=== PATIENT | female | born 1935 | race Caucasian/White ===

== ENCOUNTER 2019-06-07 22:26 | Inpatient (IN) | payer MEDICARE, OTHER ==
[~2019-06-07] VITALS: Ht 157.5 cm; Wt 59.4 kg
--- NOTE | 2019-06-07 22:37 | NUR ---
Dr. Mallory at bedside for MSE.
[2019-06-07] MEDS ORDERED: ROSU10TA2 PO (22:41)
[2019-06-07] MEDS ORDERED: EZET10TA15 PO (22:41)
[2019-06-07] MEDS ORDERED: ASPI-605 PO (22:41)
[2019-06-07] MEDS ORDERED: LEVO100T10 PO (22:41)
[2019-06-07 22:48] LABS: BASOPHILS % (AUTO) 0.6 % (0.0-2.0); EOSINOPHILS # (AUTO) 0.1 K/uL (0.0-0.7); EOSINOPHILS % (AUTO) 1.1 % (0.0-7.0); HEMATOCRIT 41.1 % (31.2-41.9); HEMOGLOBIN 14.2 g/dL (10.9-14.3); LYMPHOCYTES # (AUTO) 2.5 K/uL (20.0-40.0); LYMPHOCYTES % (AUTO) 32.6 % (20.5-51.5); MEAN CORPUSCULAR HEMOGLOBIN 30.2 uug (24.7-32.8); MEAN CORPUSCULAR HGB CONC 35 g/dL (32.3-35.6); MEAN CORPUSCULAR VOLUME 87.5 fL (75.5-95.3); MONOCYTES # (AUTO) 0.5 K/uL (2.0-10.0); MONOCYTES % (AUTO) 6.6 % (0.0-11.0); NEUTROPHILS # (AUTO) 4.5 K/uL (1.8-8.9); NEUTROPHILS % (AUTO) 59.1 % (38.5-71.5); PLATELET COUNT (AUTO) 347 K/uL (179-408); WHITE BLOOD COUNT (AUTO) 7.5 K/uL (3.8-11.8)
[2019-06-07 22:56] LABS: CREATININE 0.7 mg/dL (0.6-1.3); POTASSIUM 4.2 mmol/L (3.5-5.1)
--- NOTE | 2019-06-07 23:00 | NUR ---
Xray at bedside.
--- NOTE | 2019-06-07 23:11 | NUR ---
Called [facility] to page Dr. Bruce Queen.
[2019-06-07] MEDS ORDERED: ASPIRIN 81 MG TAB.CHEW ONE (23:28)
[2019-06-07] MEDS ORDERED: METOPROLOL SUCCINATE XL 25 MG TAB.SR.24H PO ONE ×2 (23:29→23:30)
[2019-06-07] MEDS ORDERED: NITROGLYCERIN OINT 1 GM PACKET TP ONE ×2 (23:29→23:30)
[2019-06-07] MEDS ORDERED: ASPIRIN 81 MG TAB.CHEW PO ONE (23:30)
--- NOTE | 2019-06-08 00:02 | NUR ---
Called [facility] to page Dr. Vázquez.
--- NOTE | 2019-06-08 00:16 | NUR ---
Dr. Mallory on panel call with Dr. Vázquez. Patient accepted for admission to [facility], diagnosis: chestpain.
--- NOTE | 2019-06-08 00:19 | NUR ---
Report given to Davian HAN Tele.
[2019-06-08] MEDS ORDERED: ASPIRIN 81 MG TAB.CHEW PO ONE (00:30)
[2019-06-08] MEDS ORDERED: HYDROCODONE/APAP 5-325MG TABLET PO PRN (00:30)
[2019-06-08] MEDS ORDERED: Z GUARD REMEDY PASTE 57 GM TUBE TOP PRN (00:30)
[2019-06-08] MEDS ORDERED: hydrALAZINE HCL 25 MG TABLET PO PRN (00:30)
[2019-06-08] MEDS ORDERED: MAGNESIUM HYDROXIDE 30 ML LIQUID UDC PO PRN (00:30)
[2019-06-08] MEDS ORDERED: ONDANSETRON 4 MG/2 ML VIAL IV PRN (00:30)
[2019-06-08] MEDS ORDERED: ACETAMINOPHEN 325 MG TABLET PO PRN (00:30)
[2019-06-08 00:45] VITALS: BP 150/85
--- NOTE | 2019-06-08 02:00 | NUR ---
Patient arrived via gurney from ER, assisted by ER nurse. Stable condition. Initial assessment done, no skin issues. Denies chest pain or discomfort at this time. Verbalizes feeling better. Will document assessment. Not in any respiratory distress. Denies significant history. All admission orders noted and carried out. NSR to Sinus Arrythmia on monitor, but asymptomatic. Will continue to monitor.
[2019-06-08 04:00] VITALS: BP 124/80
--- NOTE | 2019-06-08 07:15 | NUR ---
RECEIVED PATIENT AWAKE ALERT AND ORIENTED CURRENTLY ON THE PHONE CONVERSING WITH HER FAMILY ON ROOM AIR WITH NO S/S OF SOB AT THIS TIME ON TELE MONITORING WITH NO ECTOPY AT THIS TIME CALL LIGHT AND PERSONAL BELONGINGS ARE PLACED WITHIN EASY REACH AT THIS TIME WILL CONTINUE TO OBSERVE.
--- NOTE | 2019-06-08 07:42 | NUR ---
Slept well through the night with no issues. Stable vital signs and no c/o chest pain. Endorsed accordingly to AM nurse.
[2019-06-08 11:15] VITALS: BP 109/68
[2019-06-08 11:44] LABS: BASOPHILS % (AUTO) 0.4 % (0.0-2.0); EOSINOPHILS # (AUTO) 0.1 K/uL (0.0-0.7); EOSINOPHILS % (AUTO) 1.4 % (0.0-7.0); HEMATOCRIT 37.5 % (31.2-41.9); HEMOGLOBIN 12.7 g/dL (10.9-14.3); LYMPHOCYTES # (AUTO) 1.5 K/uL (20.0-40.0); LYMPHOCYTES % (AUTO) 28.5 % (20.5-51.5); MEAN CORPUSCULAR HEMOGLOBIN 29.6 uug (24.7-32.8); MEAN CORPUSCULAR HGB CONC 34 g/dL (32.3-35.6); MEAN CORPUSCULAR VOLUME 87.1 fL (75.5-95.3); MONOCYTES # (AUTO) 0.5 K/uL (2.0-10.0); MONOCYTES % (AUTO) 8.6 % (0.0-11.0); NEUTROPHILS # (AUTO) 3.2 K/uL (1.8-8.9); NEUTROPHILS % (AUTO) 61.1 % (38.5-71.5); PLATELET COUNT (AUTO) 303 K/uL (179-408); RED BLOOD CELL COUNT(AUTO) 4.31 MIL/uL (3.63-4.92); WHITE BLOOD COUNT (AUTO) 5.3 K/uL (3.8-11.8)
--- NOTE | 2019-06-08 11:48 | NUR ---
PATIENT SEEN AND EXAMINED BY DR COLÓN WITH DISCHARGE PLANNING AWAITING FOR RESULTS OF LABS ORDERED TODAY
[2019-06-08 11:51] LABS: CARBON DIOXIDE 31 mmol/L (21-32); CHLORIDE 106 mmol/L (98-107); CREATININE 0.5 mg/dL (0.6-1.3); GLUCOSE 102 mg/dL (74-106); POTASSIUM 4.2 mmol/L (3.5-5.1); UREA NITROGEN, BLOOD 15 mg/dL (7-18)
[2019-06-08 12:04] LABS: ALANINE AMINOTRANSFERASE 33 U/L (14-59); ALKALINE PHOSPHATASE 44 U/L (50-136); ASPARTATE AMINOTRANSFERASE 23 U/L (15-37); BILIRUBIN,TOTAL 0.3 mg/dL (0.2-1.0); MAGNESIUM 2.1 mg/dL (1.8-2.4); TOTAL PROTEIN, SERUM 7.1 g/dL (6.4-8.2)
[2019-06-08 12:27] LABS: THYROID STIMULATING HORMONE 1.229 mIU/mL (0.358-3.740)
[2019-06-08 13:04] LABS: CHOLESTEROL 124 mg/dL (<200); HDL CHOLESTEROL 63 mg/dL (40-60)
[2019-06-08 13:19] LABS: TRIGLYCERIDES 39 MG/DL (30-150)
--- NOTE | 2019-06-08 14:35 | NUR ---
PATIENT DISCHARGED PICKED UP BY HER VIELKA IN SATISFACTORY CONDITION WITH DISCHARGE INSTRUCTIONS AND ALL OF HER PERSONAL BELONGINGS PATIENT INSTRUCTED TO STOP ZETIA TAKE OTC TYLENOL OR IBUPRODENIES CHEST PAIN AT THIS TIME.FEN FOR PAIN AND TO CALL HER PRIMARY DOCTOR FOR A FOLLOW UP APPOINTMENT WITHIN THE NEXT ONE WEEK AND SHE EXPRESSED UNDERSTANDING.
== END 2019-06-08 14:35 | disposition home or self-care (01) | DRG 206 ==
LOC: ER 22:26 → TELE3 23:55
PROVIDERS: ADMIT Student in an Organized Health Care Education/Training Program; ATTEND Internal Medicine
DX: M94.0 Chondrocostal junction syndrome [Tietze] (principal); I10 Essential (primary) hypertension; E78.5 Hyperlipidemia, unspecified; M19.90 Unspecified osteoarthritis, unspecified site; Z87.891 Personal history of nicotine dependence; E89.0 Postprocedural hypothyroidism; Z79.890 Hormone replacement therapy; Z96.652 Presence of left artificial knee joint; Z82.49 Family history of ischemic heart disease and other diseases of the circulatory system; E78.00 Pure hypercholesterolemia, unspecified
CPT/HCPCS: 36415; 70030-TC; 71045; 83735; 84100; 84443; 85025; 93005; A4663; G0378